=== PATIENT | male | born 1945 | race African-American/Black ===

== ENCOUNTER 2018-11-19 09:39 | Observation (INO) | payer MEDICARE ==
--- NOTE | 2018-11-19 12:04 | HP ---
PRIMARY CARE PHYSICIAN: Dr. Stewart. REASON FOR ADMISSION: Transferred from [facility] for chest pain. HISTORY OF PRESENT ILLNESS: A 73-year-old male, who has underlying history of hypertension and dyslipidemia, who went to [facility] for evaluation of chest pain. The patient reports that yesterday evening he was feeling epigastric discomfort, which was episodic, lasting for a few minutes, and subsided by itself. He was also feeling a feeling of burping. He denies any heartburn. He denies any associated nausea, vomiting, or shortness of breath. He denies any fever or chills. He denies any pleurisy. He denies any relation of discomfort with food, respiration, or activity. He denies taking NSAID or any unusual food ingestion. He was able to go sleep without any problem, but this morning when he was on his right side position, and when he turned himself to left side position, he was feeling similar discomfort, and that is why, he decided to go to local emergency room for evaluation. His intensity of discomfort is only 2/10. He denies any associated diaphoresis. At [facility], he had a chest x-ray done, which was normal. EKG was unremarkable and routine blood test was also unremarkable. He was given Protonix, nitroglycerin sublingual, and aspirin; and subsequently, he was transferred to our hospital for further evaluation. Currently, the patient is asymptomatic. REVIEW OF SYSTEMS: CONSTITUTIONAL: Negative for weight loss or gain, ability to conduct usual activities. SKIN: Negative for rash, itching. EYES: Negative for double vision, pain. ENT/MOUTH: Negative for nose bleeding, neck stiffness, pain, tenderness. CARDIOVASCULAR: Negative for palpitations, dyspnea on exertion, orthopnea. RESPIRATORY: Negative for shortness of breath, wheezing, cough, hemoptysis, fever or night sweats. GASTROINTESTINAL: Negative for poor appetite, abdominal pain, heartburn, nausea, vomiting, constipation, or diarrhea. GENITOURINARY: Negative for urgency, frequency, dysuria, nocturia. MUSCULOSKELETAL: Negative for pain, swelling. NEUROLOGIC/PSYCHIATRIC: Negative for anxiety, depression. ALLERGY/IMMUNOLOGIC: Negative for skin rash, bleeding tendency. Please see my HPI for pertinent positives and negatives. All other review of systems reviewed and negative except as mentioned in HPI. PAST MEDICAL HISTORY: 1. Hypertension. 2. Dyslipidemia. PAST SURGICAL HISTORY: 1. Bilateral knee surgery. 2. Sinus surgery. PAST PSYCHIATRIC HISTORY: 1. Anxiety. 2. Depression. SOCIAL HISTORY: The patient is . He is a former drug user. He is a former smoker. He denies any currently alcohol, tobacco, or illicit drug abuse. FAMILY HISTORY: No strong family history of premature coronary artery disease, stroke, or cancer. ALLERGIES: NO KNOWN DRUG ALLERGIES. CURRENT HOME MEDICATIONS: 1. Lipitor 10 mg p.o. at bedtime. 2. Zoloft 200 mg p.o. daily. 3. Hydrochlorothiazide 25 mg daily. 4. Bupropion 150 mg daily. 5. Prozac 10 mg daily. EMERGENCY ROOM COURSE: The patient was given nitroglycerin, Protonix, and aspirin. PHYSICAL EXAMINATION: VITAL SIGNS: Currently, blood pressure 134/97, pulse 80, respiratory rate 17, temperature 97.1, and saturation 99% on room air. Weight 83.4 kg. GENERAL: The patient is currently alert, oriented, in no acute distress. HEAD: Normocephalic and atraumatic. EYES: Pupils round and reactive to light. Extraocular muscles intact. ENT: Oropharynx within normal limits. Moist mucous membranes. No oral lesion. No pharyngeal erythema. No exudate. NECK: Supple. No thyromegaly. No carotid bruit. No jugular venous distention. LUNGS: Clear to auscultation without any rhonchi or rales. CARDIAC: S1 and S2 regular without any murmur. No gallop. No rub. ABDOMEN: Soft. Bowel sounds present. Nontender and nondistended. No organomegaly. No mass. No suprapubic tenderness. No right upper quadrant tenderness. No epigastric discomfort noted. BACK: Unremarkable. No CVA tenderness. EXTREMITIES: Upper extremities; passive movements of all joints are normal. Lower extremities; no edema, good distal pulsation. No calf tenderness. SKIN: No skin rash. HEMATOLOGICAL SYSTEM: No lymphadenopathy. NEUROLOGIC: Nonfocal examination. SIGNIFICANT LABORATORY DATA: EKG showing normal sinus rhythm, nonspecific ST-T changes. Chest x-ray based on my review, no acute cardiopulmonary process. CBC; WBC 5.1, hemoglobin 14.2, and platelets 227. BMP; sodium 140, potassium 3.5, chloride 102, carbon dioxide 26, BUN 12, creatinine 1.19, glucose 82, calcium 10.2. LFT; AST 30, ALT 17, alkaline phosphatase 128, and albumin 4.1. BNP 13.1 and troponin less than 0.010. Lipase 49. ASSESSMENT AND PLAN: Impression: 1. Chest discomfort. The patient has predominantly epigastric discomfort and chest discomfort together. His description is points toward gastrointestinal etiology, but because the patient has several risk factors including age, hypertension, dyslipidemia, cardiac etiology needs to be excluded. This patient will need exercise Cardiolite stress test, which will be done tomorrow morning. We will keep him n.p.o. after midnight. Meanwhile, we will continue with aspirin 325 mg p.o. daily. We will also continue with Protonix 40 mg p.o. daily. We will check lipid profile for risk stratification. 2. Hypertension, currently well controlled. Continue hydrochlorothiazide 25 mg p.o. daily. 3. Dyslipidemia. Continue Lipitor 10 mg p.o. nightly. Check lipid profile tomorrow morning. 4. Anxiety and depression. Continue bupropion and Zoloft as per home dosage. 5. Deep venous thrombosis prophylaxis, not needed because we are expecting discharge in 24 hours. 6. Gastrointestinal prophylaxis. Protonix 40 mg p.o. daily. 7. Code status. The patient is full code. The patient's is surrogate decision maker. 8. Disposition. Plan based on the stress test result tomorrow morning. Plan of care discussed with the patient and family member at bedside in the emergency room. Job ID: [id number]
[2018-11-19] MEDS ORDERED: Bisacodyl 10 MG SUPP PR PRN (12:58)
[2018-11-19] MEDS ORDERED: Acetaminophen 325 MG TAB PO PRN (12:58)
[2018-11-19] MEDS ORDERED: HYDROcodone/Acetaminophen 5/325 mg Tablet PO PRN (12:58)
[2018-11-19] MEDS ORDERED: Senokot S 8.6-50 MG TAB PO PRN (12:58)
[2018-11-19] MEDS ORDERED: Ondansetron ODT 4 MG TAB PO PRN (12:58)
[2018-11-19] MEDS ORDERED: Zolpidem Tartrate 5 MG TAB PO PRN (12:58)
[2018-11-19] MEDS ORDERED: Loperamide HCl 2 MG CAP PO PRN (12:58)
[2018-11-19] MEDS ORDERED: Ondansetron PF 4 MG/2 ML Vial IVP PRN (12:58)
[2018-11-19] MEDS ORDERED: Nitroglycerin 0.4 MG TAB (25 Tab Bottle) PO PRN (12:58)
[2018-11-19] MEDS ORDERED: Calcium Carbonate 500 MG ChewTAB PO PRN (12:58)
[2018-11-19 13:21] VITALS: BMI 23.2
[2018-11-19 14:20] LABS: Troponin I Less than 0.010 ng/mL (< 0.028)
[2018-11-19 17:43] LABS: Troponin I Less than 0.010 ng/mL (< 0.028)
[2018-11-20 04:59] LABS: #Basophils 0.1 thou/uL (0.0-0.2); #Eosinphils 0.2 thou/uL (0.0-0.7); #Lymphocytes 2.5 thou/uL (1.20-3.40); #Monocytes 0.6 thou/uL (0.11-0.59); #Neutrophils 1.8 thou/uL (1.40-6.50); %Basophils 1.5 % (0.0-1.0); %Eosinophils 4.8 % (0.0-10.0); %Lymphocytes 47.8 % (21.0-51.0); %Monocytes 11.5 % (0.0-10.0); %Neutrophils 34.4 % (42.0-75.0); Hemoglobin 13.3 g/dL (14.0-18.0); Mean Corpuscular HGB CONC 32.7 g/dL (32.0-36.0); Mean Corpuscular Hemoglobin 30.9 pg (27.0-31.0); Mean Corpuscular Volume 94.6 fL (78.0-98.0); Mean Platelet Volume 7.7 fL (7.4-10.4); Platelet Count 216 thou/uL (130-400); RBC Distribution Width 12.6 % (11.5-14.5); Red Blood Cell (RBC) Count 4.31 mill/uL (4.70-6.10); White Blood Cell (WBC) Count 5.1 thou/uL (4.8-10.8)
[2018-11-20 05:22] LABS: Anion Gap 12 mmol/L (10-20); BUN (Urea Nitrogen) 11 mg/dL (8.4-25.7); Calc. Creatinine Clearance 79 mL/min (70-130); Calcium 9.3 mg/dL (7.8-10.44); Carbon Dioxide 26 mmol/L (23-31); Chloride 105 mmol/L (98-107); Estimated GFR-MDRD 89; Glucose 80 mg/dL (83-110); Potassium 3.4 mmol/L (3.5-5.1); Sodium 140 mmol/L (136-145)
[2018-11-20] MEDS ORDERED: Hydrochlorothiazide 25 MG TAB PO SCH (09:00)
[2018-11-20] MEDS ORDERED: Aspirin 325 mg Enteric Coated Tablet PO SCH (09:00)
--- NOTE | 2018-11-20 11:39 | NM ---
RADIONUCLIDE STRESS AND REST MYOCARDIAL PERFUSION SCAN WITH CT ATTENUATION CORRECTION AND SPECT IMAGI NG: HISTORY: Chest pain. FINDINGS: There is heterogeneous uptake of radiotracer throughout the left ventricular myocardium on the stress and rest images. No focal perfusion defect or reversibility. QGS analysis of gated SPECT images shows no focal wall motion abnormalities. Ejection fraction calcul ated at 60%. IMPRESSION: Normal myocardial perfusion scan. Normal LVEF. Transcribed Date/Time: 11/20/2018 11:38 AM
[2018-11-20 12:36] VITALS: BP 105/68; TEMP 99
--- NOTE | 2018-11-21 05:39 | SS ---
DATE OF ADMISSION: 11/19/2018 DATE OF DISCHARGE: 11/20/2018 PRIMARY CARE PHYSICIAN: Dr. Stewart. PROCEDURES: The patient had a stress test with nuclear medicine, which showed a normal myocardial perfusion scan. EF calculated at 60%. HOSPITAL COURSE: Mr. Holland is a 73-year-old male, who reported to the emergency room for evaluation of chest pain on 11/19/2018. Reports that he initially went to [facility] ER, was given an aspirin, Protonix, and nitroglycerin to help with the chest pain. Reports that chest pain is in his mid/lower chest that started at 11:00 p.m. on 11/19. The patient states that the pain is worse with activity. The patient states the sensation is feeling like he is gassy. Denies any shortness of breath. Does have a history of high cholesterol. Denies any history of DVT or PE. The patient was subsequently sent to the emergency room at [facility] and admitted to the observation unit, where he underwent a stress test, nuclear medicine which was a normal perfusion scan. Troponins x4 undetectable. The patient states this morning on exam that he no longer had any pain, chest pain had resolved. Reports that he was hungry. Lab work stable, vital signs stable, so the patient was subsequently sent home with instructions to follow up with Dr. Stewart within the next week. The patient was given a prescription for Protonix for 2 weeks, was instructed to take it every day until he sees Dr. Stewart and could tell him whether it helped or not. The patient believes that some of his pain may have been related to acid reflux. ALLERGIES: NONE. HOME MEDICATIONS: Restarted on discharge: 1. Lipitor 10 mg p.o. daily. 2. Wellbutrin 150 mg p.o. daily. 3. Prozac 10 mg p.o. daily. 4. Hydrochlorothiazide 25 mg p.o. q.a.m. 5. Zoloft 200 mg p.o. daily. 6. We added Protonix 40 mg p.o. daily x2 weeks. REVIEW OF SYSTEMS: The patient was examined prior to discharge. The patient denied any complaints. Denied any chest pain, palpitations, shortness of breath, abdominal pain. All other systems are reviewed and are negative unless mentioned in the hospital course. PHYSICAL EXAMINATION: VITAL SIGNS: Temperature is 98.3, pulse is 70, respirations 18, 98% on room air pulse ox, blood pressure 107/67. CONSTITUTIONAL: The patient appears nontoxic, appears pain free, is alert and oriented to person, place, and time. HEENT: Head is atraumatic and normocephalic. Eyes; eyelids are normal to inspection. Pupils are equally round and reactive to light. Extraocular muscles are intact. ENT, mouth exam is normal. Mucous membranes are moist. NECK: Normal range of motion. Trachea is midline. RESPIRATORY/CHEST: No respiratory distress. Breath sounds are clear. CARDIOVASCULAR: Regular heart rate and rhythm. No abnormal heart sounds. ABDOMEN: Nontender. Bowel sounds are heard. BACK: Normal range of motion. No tenderness. EXTREMITIES: Upper extremities, normal inspection, normal range of motion, motor strength is normal, radial pulses equal bilaterally. Lower extremities, motor strength is normal, sensation is intact, pedal pulses equal bilaterally. NEUROLOGIC: Cranial nerves 2 through 12 are grossly intact. SKIN: Warm, dry, normal in color. PSYCHIATRIC: Has a normal affect. DISCHARGE DIAGNOSES: 1. Chest pain, resolved, unknown etiology. 2. Hypertension. 3. Hyperlipidemia. 4. Anxiety and depression. DISCHARGE DISPOSITION: To home. STATUS: Stable. REFERRAL: The patient should follow up with Dr. Stewart within the next week. Job ID: [id number]
--- NOTE | 2018-11-28 14:17 | STRESS ---
Acquisition Time: 2018-11-20 09:22:59 Total Exercise Time: 00:06:00 Test Indications: CHEST PAIN Medications: Protocol: JACIEL Max HR: 155 BPM 104% of Pred: 149 BPM Max BP: 164/076 mmHG Max Work Load: 7.0 METS RESTING ECG: NORMAL SINUS RHYTHM SYMPTOMS: NONE NORMAL BP RESPONSE ECTOPY: NONE ECG STRESS: NO SIGNIFICANT CHANGES INTERPRETATION: NEGATIVE GXT/AWAIT NUCLEAR IMAGES FOR DEFINITIVE DIAGNOSIS Confirmed by ANUM BOOTH ([id number]), production editor JOANN AMAYA ([id number]) on 11/28/2018 2:17:25 PM Referred By: MD Heidi BENSON Confirmed By:ANUM BOOTH
== END 2018-11-20 13:54 | disposition home or self-care (01) ==
LOC: ERS 09:39 → 2SW 11:10
PROVIDERS: ADMIT Internal Medicine; ATTEND Internal Medicine
DX: R07.89 Other chest pain (principal); I10 Essential (primary) hypertension; E78.5 Hyperlipidemia, unspecified; F41.8 Other specified anxiety disorders; F32.9 Major depressive disorder, single episode, unspecified; Z79.899 Other long term (current) drug therapy; Z87.891 Personal history of nicotine dependence
CPT/HCPCS: 78452; 80048; 84484; 85025; 93005; 93017; 99285; A9500; G0378 ×2; 36415

== ENCOUNTER 2019-11-20 13:28 | Outpatient (CLI) | payer MEDICARE | END 2019-11-20 13:29 | disposition home or self-care (01) | LOC: CTENTCT 13:28 | PROVIDERS: ATTEND Student in an Organized Health Care Education/Training Program | DX: J32.9 Chronic sinusitis, unspecified (principal) | CPT/HCPCS: 70486 ==

== ENCOUNTER 2020-05-19 06:42 | Outpatient (CLI) | payer MEDICARE ==
[2020-05-19 13:41] LABS: #Eosinphils 0.2 10x3/uL (0.0-0.5); #Monocytes 0.6 10x3/uL (0.0-1.1); #Neutrophils 1.9 10x3/uL (1.5-8.4); %Basophils 0.6 % (0.0-2.0); %Eosinophils 4.3 % (0.0-6.0); %Lymphocytes 43.3 % (18.0-47.0); %Monocytes 12.8 % (0.0-10.0); %Neutrophils 38.6 % (40.0-75.0); Hemoglobin 14.1 g/dL (14.0-18.0); Mean Corpuscular HGB CONC 31.9 G/DL (32.0-36.0); Mean Corpuscular Hemoglobin 29.6 PG (27.0-33.0); Mean Corpuscular Volume 92.9 fl (80.0-100.0); Mean Platelet Volume 10.4 fl (7.4-10.4); Platelet Count 300 10x3/uL (130-400); RBC Distribution Width 13.2 % (11.5-14.5); Red Blood Cell (RBC) Count 4.76 10x6/uL (4.40-5.80); White Blood Cell (WBC) Count 4.9 10x3/uL (4.5-11.0)
[2020-05-19 13:48] LABS: Anion Gap 13 mmol/L (10-20); BUN (Urea Nitrogen) 12 mg/dL (8.4-25.7); Calc. Creatinine Clearance 0 mL/min (70-130); Calcium 9.3 mg/dL (7.8-10.44); Carbon Dioxide 26 mmol/L (23-31); Chloride 104 mmol/L (98-107); Estimated GFR-MDRD 78; Glucose 78 mg/dL (83-110); Potassium 4.3 mmol/L (3.5-5.1); Sodium 139 mmol/L (136-145)
--- NOTE | 2020-05-19 21:08 | EKG ---
Test Reason : PREOP Blood Pressure : / mmHG Vent. Rate : 077 BPM Atrial Rate : 077 BPM P-R Int : 202 ms QRS Dur : 086 ms QT Int : 370 ms P-R-T Axes : 044 071 060 degrees QTc Int : 418 ms Normal sinus rhythm Normal ECG No previous ECGs available Confirmed by Gregorio LAINEZ ([id number]) on 05/19/2020 9:08:11 PM Referred By: Rhoda LEÓN Confirmed By:Gregorio LAINEZ
[2020-05-20 12:10] LABS: SARS-CoV-2 MS2 Positive; SARS-CoV-2 N Gene Negative; SARS-CoV-2 S Gene Negative; SARS-CoV-2 by NAA Not Detected (NotDetected); SARS-CoV-2 orf1ab Negative
== END 2020-05-19 06:43 | disposition home or self-care (01) ==
LOC: LABBT 06:42
PROVIDERS: ATTEND Specialist
DX: Z01.818 Encounter for other preprocedural examination (principal); K40.90 Unilateral inguinal hernia, without obstruction or gangrene, not specified as recurrent
CPT/HCPCS: 71046; 80048; 85025; 93005; U0003; 87635; 93010

== ENCOUNTER 2020-05-22 10:32 | Day surgery (SDC) | payer MEDICARE ==
--- NOTE | 2020-05-19 13:53 | RAD ---
PA AND LATERAL chest: Date: 05/19/2020 HISTORY: Preop. COMPARISON: 11/19/2018 study. FINDINGS: Heart size is within normal limits. Aorta is tortuous. Lungs are clear of infiltrates. IMPRESSION: No active intrathoracic disease. POS: ALEXANDER
[2020-05-21 13:27] VITALS: BMI 24.3
[2020-05-22] MEDS ORDERED: Acetaminophen 500 MG TAB ONE (10:56)
[2020-05-22] MEDS ORDERED: Ketorolac Tromethamine 30 MG/ML VIAL ONE (10:56)
[2020-05-22] MEDS ORDERED: PROPOFOL 200 MG/20 ML VIAL ONE (11:20)
[2020-05-22] MEDS ORDERED: Lidocaine 1% PF 5 ML VIAL ONE (11:20)
[2020-05-22] MEDS ORDERED: Rocuronium Bromide 10 MG/ML (10ML VIAL) ONE (11:20)
[2020-05-22] MEDS ORDERED: SUGAMMADEX SODIUM 200 MG/2 ML VIAL ONE (11:51)
[2020-05-22] MEDS ORDERED: Fentanyl 100 MCG/2 ML VIAL ONE ×2 (11:51→11:52)
[2020-05-22] MEDS ORDERED: Bupivacaine 0.25% HCL 30 ML VIAL ONE (12:23)
[2020-05-22] MEDS ORDERED: EPINEPHrine 1 MG/ML AMP ONE (12:23)
[2020-05-22] MEDS ORDERED: Morphine 2 MG/ML VIAL ONE (16:40)
--- NOTE | 2020-05-23 02:08 | OP ---
DATE OF PROCEDURE: 05/22/2020 PREOPERATIVE DIAGNOSIS: Left inguinal hernia. POSTOPERATIVE DIAGNOSIS: Left inguinal hernia, indirect along with a large cord lipoma. PROCEDURE PERFORMED: Robotic left inguinal hernia repair with mesh using a 3DMax mesh patch. ANESTHESIA: General endotracheal. INDICATIONS: The patient is a 74-year-old black male, who presents with easily visible and palpable left inguinal hernia and is taken to the operating room at this time for repair. DESCRIPTION OF OPERATION: Informed consent was obtained. Patient was taken to the operating room, where general endotracheal anesthesia was obtained with the patient in supine position. Muñiz catheter was attempted, but nursing personnel was unable to place one and therefore, Urology consultation was obtained. Dr. Wills graciously presented quickly and performed cystoscopy, which identified a shelf, which was nonobstructive and he was able to quickly place a Muñiz catheter. No internal urethral trauma had occurred. The abdomen was then prepped with ChloraPrep and draped in sterile fashion. Local anesthetic was infiltrated supraumbilical using 0.25% Marcaine with epinephrine. An 11 mm incision was created and Veress needle was passed through this incision into the abdominal cavity. Pneumoperitoneum was established using carbon dioxide up to pressure of 15 mmHg. An 11 mm balloon-tipped trocar port was passed and the camera was passed this port. Under direct vision, I placed 2 additional 8 mm robotic ports at the supraumbilical level on either side of midline. The robot was docked to the ports and the camera and the operation was continued from the robotic console. There was a definite left inguinal hernia visualized. There appeared to have been scar tissue and/or a clip from a prior surgery in the right groin, possibly prior right inguinal hernia repair. A transverse peritoneal incision was created several centimeters above the hernia. Preperitoneal dissection was carried inferiorly. On the lateral aspect, the iliopubic tract was carefully dissected. On the medial aspect, the Александр ligament and the pubic tubercle were identified. In the center of the dissection, I carefully began dissecting the hernia off the underlying cord structures. There was recognized to be a large cord lipoma, which was withdrawn uneventfully. This was adjacent to the indirect inguinal hernia. The peritoneum was widely dissected off the cord structures in order to fully developed the preperitoneal space. A large left 3DMax mesh patch was obtained and placed in the preperitoneal space. It was secured in place with 3 interrupted sutures of 2-0 Vicryl, one to the Александр ligament, one to the anterior abdominal wall medial to the epigastric vessels, and one lateral to the epigastric vessels. The peritoneal defect was then closed with a running suture of 3-0 Stratafix. The robot was undocked. I then closed the fascial defect at the 11 mm port with 0 Vicryl suture using a GraNee needle. The remaining port sites were inspected and ports were removed. There was no bleeding at any location. All ports and instruments were removed. Pneumoperitoneum was carefully evacuated. 0.25% Marcaine with epinephrine was infiltrated at each port site. Skin edges approximated with 4-0 Monocryl subcuticular suture. Dermabond was placed externally. There were no complications. The patient's bladder was backfilled with 200 mL of saline at the end of the operation to inspect for ability to avoid after the surgery. Job ID: [id number]
--- NOTE | 2020-05-23 12:48 | OP ---
DATE OF PROCEDURE: 05/22/2020 SERVICE: Urology. Intraoperative consultation requested by Dr. Fernández secondary to inability to pass catheter. PROCEDURE PERFORMED: Cystoscopy with placement of a 16-Cymraes [place] tip catheter over a wire secondary to altered anatomy. REASON FOR INTRAOPERATIVE CONSULT: Mr. Holland is a 74-year-old black male with an inguinal hernia. He is being planned for a robotic inguinal hernia repair. He does have a history of TURP previously. Upon undergoing anesthesia, the nursing staff attempted to place a catheter, but was unsuccessful. After several attempts, I was requested to assist with catheter placement at the patient's bedside. Upon my arrival to the operating room, the patient was already asleep. Any history was obtained from the patient's chart. DESCRIPTION OF PROCEDURE: The patient was already asleep under general anesthesia. His penis was prepped and draped in the usual sterile fashion. A flexible cystoscope was then used to investigate into the patient's bladder. His urethra appeared normal. There were no strictures or lesions. Upon entry past the urethral sphincter, the prostate demonstrated evidence of a prior TURP. There was a significant shelf present at the bladder neck, which is likely where the catheter was becoming hung up. With some anterior deflection, the cystoscope was advanced easily into the bladder, which appeared normal. There was a lot of turbid urine, which made visualization somewhat difficult, but there were no obvious tumors, bladder stones, or significant abnormalities. There was grade 1 trabeculation throughout. No obvious diverticula or cellules noted. Both ureters were in the orthotopic location. An Amplatz Super Stiff wire was then placed through the lumen of the cystoscope into the bladder and the cystoscope was then backed out, leaving the Super Stiff wire in place. A 16-Cymraes [place] tip catheter, which was well looped was then advanced over the Super Stiff wire, which was then placed into the patient's bladder. The Super Stiff wire was then removed and 10 mL of sterile water was placed into the patient's catheter and seated against his bladder neck. This was then hooked up to gravity drainage. At this point, the procedure from my end was completed and Dr. Fernández will then begin his portion of his surgery, which will be dictated separately in his operative note. For my portion of the procedure, complications were none, estimated blood loss was minimal. RETAINED TUBES AND DRAINS: 16-Cymraes [place] tip catheter. SPECIMENS: None. DISPOSITION: The patient will not require any assistance as he had no urethral or mucosal trauma from attempted passage of catheter previously. His catheter can be removed per Dr. Fernández as per routine after inguinal hernia repair. He does not need any followup with me afterwards unless there are some urinary problems. Job ID: [id number]
== END 2020-05-22 19:00 | disposition home or self-care (01) ==
LOC: SDC 10:32
PROVIDERS: ATTEND Specialist
PROC: 0YU64JZ Supplement Left Inguinal Region with Synthetic Substitute, Percutaneous Endoscopic Approach (ICD-10-PCS; principal; 2020-05-22)
PROC: 0TJB8ZZ Inspection of Bladder, Via Natural or Artificial Opening Endoscopic (ICD-10-PCS; 2020-05-22)
DX: K40.90 Unilateral inguinal hernia, without obstruction or gangrene, not specified as recurrent (principal); D17.6 Benign lipomatous neoplasm of spermatic cord; I10 Essential (primary) hypertension; F41.9 Anxiety disorder, unspecified; F32.9 Major depressive disorder, single episode, unspecified; J45.909 Unspecified asthma, uncomplicated; E78.5 Hyperlipidemia, unspecified; Z79.899 Other long term (current) drug therapy; Z87.891 Personal history of nicotine dependence
CPT/HCPCS: 49650; 52000; 71046; C1781; J2270; J0171; J0690; J1885; J2704; J3010; S0020